=== PATIENT | male | born 1965 | race Caucasian/White ===

== ENCOUNTER 2022-01-16 13:40 | Day surgery (SDC) | payer BC, SELFPAY ==
[2022-01-16] VITALS (7 sets, daily range): BP systolic 118–127; BP diastolic 77–85; PULSE 48–69; RESP 16; TEMP 36.3–36.8; O2SAT 97–98; BMI 35.6
[2022-01-16] MEDS: Lactated Ringers 1,000 ML 15 ML IV (14:15)
--- NOTE | 2022-01-16 15:00 | EGD_PTH ---
PATIENT: YARA FRAZIER II LOC: EN U#:[id number] AGE/SX: 56/M ROOM: RE01/16/[address]: Dr. Jesús Dan DO : 1965 BED: DIS: 01/16/2022 SPEC #: [id number] RECD: 01/16/22 16:27 STATUS: NAVEEN MOSSEmily #: [id number] HERB: 01/16/22 15:[address]: Jesús Dan DEPT: SURGICAL PATHOLOGY RECD BY: Laura Ward Tissues: A - Duodenum, NOS B - Gastric mucous membrane Esophagus, NOS Procedures: Special Stain Group II Surgery Specimen Level IV Alcian Blue/PAS (control) HEADER OPERATION: EGD with biopsies ([facility]) PRE-OP DIAGNOSIS: GERD TISSUE SUBMITTED: A ? Duodenum biopsy, B ? Antrum biopsy, C ? Distal esophagus biopsy MICROSCOPIC DIAGNOSIS A. Duodenum, biopsy: Fragments of duodenal mucosa, no pathologic diagnosis. B. Antrum, biopsy: Mild gastritis. See microscopic description and comment. C. Distal esophagus, biopsy: Fragments of gastric mucosa with chronic inflammation. Intestinal metaplasia (goblet cell metaplasia) not identified. See comment. SJ:nanci 01/18/2022 COMMENT B. The results of immunohistochemistry for Helicobacter pylori will be reported separately ([id number]). C. Alcian blue/PAS stain with matched control is used in the evaluation of the specimen. MICROSCOPIC DESCRIPTION Slides are reviewed. B. The specimen shows fragments of gastric mucosa with chronic inflammatory cell infiltrates in the lamina propria consisting of lymphocytes and plasma cells, consistent with mild chronic gastritis. GROSS DESCRIPTION A - Received in fixative is one container labeled with the patient's name and designated duodenum biopsy. The specimen consists of two irregular fragments of [place] soft tissue that in aggregate measure 0.5 x 0.5 x 0.1 cm. The specimen is totally submitted in one cassette. B - Received in fixative is one container labeled with the patient's name and designated antrum biopsy. The specimen consists of multiple irregular fragments of [place] soft tissue that in aggregate measure 1.2 x 0.5 x 0.1 cm. The specimen is totally submitted in one cassette. C - Received in fixative is one container labeled with the patient's name and designated distal esophagus biopsy. The specimen consists of two irregular fragments of [place] soft tissue that in aggregate measure 0.6 x 0.3 x 0.1 cm. The specimen is totally submitted in one cassette. / SJ:rg 01/17/2022 TC:3 CPT: 59583 x3, 36671
--- NOTE | 2022-01-16 15:00 | IMM_PTH ---
PATIENT: YARA FRAZIER II LOC: EN U#:[id number] AGE/SX: 56/M ROOM: RE01/16/[address]: Dr. Jesús Dan DO : 1965 BED: DIS: 01/16/2022 SPEC #: [id number] RECD: 01/17/22 10:09 STATUS: NAVEEN REEmily #: [id number] HERB: 01/16/22 15:[address]: Jesús Dan DEPT: IMMUNOHISTOCHEMISTRY RECD BY: Catrina Crabtree Tissues: B - Stomach, NOS Procedures: H Pylori (initial) PHYSICIAN & INSTITUTION [place] [id number] SPECIMEN INFORMATION: Tissue Source: B ? Antrum biopsy Clinical Info: GERD Specimen Number: [id number] CPT code: 92414 METHODOLOGY: Deparaffinized sections of prefer/formalin-fixed tissue or PAP/DQ stained slides are incubated with monoclonal/polyclonal antibodies/oligonucleotide probes. Localization is made via biotin free immunoperoxidase method. Appropriate controls are performed and reacted as expected. Results on target cell population are indicated in the following table: RESULTS: ANTIBODY / CLONE RESULT Block B H Pylori (polyclonal) negative These tests were developed and their performance characteristics determined by [facility]. They may not have been cleared or approved by the U.[place]. Food and Drug Administration. The FDA has determined that such clearance or approval is not necessary. The above immunohistochemical/dualISH markers are ordered and reviewed by the Pathologist. INTERPRETATION: B. Antrum, biopsy: Negative for Helicobacter pylori organisms. MOHIT:nanci 01/18/2022
--- NOTE | 2022-01-16 15:15 | HP.PCM_ITS ---
History and Physical Date of Admission: 01/16/22 YARA FRAZIER, is a 56 M who presents to the office today for Initial consult. Yara established with this clinic 01.04.22 with referral from PCP. He has difficulty with reflux and upset stomach without nausea/emesis since June 2021 with progression of severity and frequency; currently occurring 3-4 days a week. Pepto-bismol ineffective, Mylanta somewhat more helpful. PCP prescribed sucralfate QID and protonix 40mg QD with minimal improvement of severity. Unable to identify triggers. BM are not an issue ? movement 1-2 times a day with complete evacuation. Screening colonoscopy 12.29.[address] [facility] ? reports three polyps. This was third screening colonoscopy. ROS Const Constitutional: No anorexia, fatigue, fever(s), weight change or sleep problems Eyes Eyes: No change in vision ENT ENT: No abnormal hearing, difficulty swallowing, mouth lesions, tongue swelling or throat swelling Resp Respiratory: No cough or shortness of breath Cardio Cardiology: No chest pain at rest, chest pain with exertion, shortness of breath or dyspnea on exertion Gastro GI: No difficulty swallowing Genitourinary Male: No difficulty urinating or burning urination Musc Musculoskeletal: No joint pain, joint swelling, muscle weakness or decreased muscle mass Skin Skin: No hair loss in leg, yellowing of the eye, itchy eyes, rash, skin ulcer or skin swelling Neuro Neurology: No abnormal hearing, abnormal movements, confusion, unsteady gait/balance or memory loss Psych Psychiatric: No anxiety, No confusion and No memory loss Endo Endocrine: No fatigue or weight change Aller/Imm Allergy/Immunologic: No itchy eyes, throat swelling or tongue swelling Bharathi/Lymp Hematologic/Lymphatic: No easy bleeding, easy bruising or enlarged lymph nodes Exam Const General: cooperative and comfortable Nutritional Appearance: average body habitus and well nourished [facility] Head: normal to inspection Ears: hearing grossly normal bilaterally Nose: external nose normal Face and sinus: normal facial exam Mouth: oral mucosae normal Throat: posterior oropharynx normal Eyes General: appearance normal, both eyes and all related structures Neck Neck: normal visual inspection Chest Chest palpation & inspection: normal inspection of the chest and normal palpation of entire chest wall Resp Effort & Inspection: normal respiratory effort Auscultation: Bilateral: Clear to Auscultation Cardio Palpation: normal PMI Rate: regular rate Rhythm: regular rhythm GI Inspection: normal to inspection Auscultation: normal bowel sounds Percussion: normal to percussion Palpation: no hepatosplenomegaly Skin General: no rashes or lesions noted Neuro General: patient alert Extrem General: normal to inspection Psych Affect: normal affect Quality Reporting Tobacco Screening ([facility] 138) Smoking Status: Current every day smoker Assessment and Plan Assessment and Plan (1) GERD (gastroesophageal reflux disease): ?Status:?Acute ?Plan: We will have an upper endoscopy to evaluate his upper GI tract. I think alot of his symptoms are secondary to his diet. He will be a strict complex carbohydrate and protein diet for three weeks.After 3 weeks he will be able to incorporate on thing from the list of food that will be off limits. We will also perform an endoscopy to evaluation his upper GI tract. I have re-examined the patient. There are no clinical changes since date of exam.
--- NOTE | 2022-01-16 15:35 | OP.CCLET_ITS ---
01/16/2022 [place] Re : Upper GI endoscopy procedure for Brad Park This procedure was performed on Sunday, January 16, 2022. My impressions and recommendations are as follows: Impressions : - Z-line irregular, 40 cm from the incisors. Biopsied. - Non-bleeding erosive gastropathy. Biopsied. - Gastritis. Biopsied. - Normal second portion of the duodenum. Recommendations : - Discharge patient to home. - Resume previous diet. - Continue present medications. - Await pathology results. - Repeat upper endoscopy in 1 year for surveillance based on pathology results. My findings are described in the full procedure note, which is enclosed. If I can be of further assistance, please feel free to contact me at . Sincerely, Jesús Dan, 01/16/2022 3:34:56 PM This report has been signed electronically.
--- NOTE | 2022-01-16 15:35 | OP.EGD_ITS ---
Patient Name: Brad Christian Procedure Date: 01/16/2022 3:04 PM Date of : 1965 Age: 56 Procedure: Upper GI endoscopy Indications: Epigastric abdominal pain, Functional Dyspepsia Providers: Jesús Dan DO Medicines: Monitored Anesthesia Care Patient Profile: This is a 56 year old male. Refer to note in patient chart for documentation of history and physical. Patient has symptoms of chronic abdominal cramping, chronic abdominal distention and chronic epigastric abdominal pain. Complications: No immediate complications. Procedure: Pre-Anesthesia Assessment: - Prior to the procedure, a History and Physical was performed, and patient medications and allergies were reviewed. The risks and benefits of the procedure and the sedation options and risks were discussed with the patient. All questions were answered and informed consent was obtained. Patient identification and proposed procedure were verified by the physician in the pre-procedure area. Mental Status Examination: alert and oriented. Airway Examination: normal oropharyngeal airway and neck mobility. Respiratory Examination: clear to auscultation. CV Examination: normal. Prophylactic Antibiotics: The patient does not require prophylactic antibiotics. Prior Anticoagulants: The patient has taken no previous anticoagulant or antiplatelet agents. ASA Grade Assessment: II - A patient with mild systemic disease. After reviewing the risks and benefits, the patient was deemed in satisfactory condition to undergo the procedure. The anesthesia plan was to use monitored anesthesia care (MAC). Immediately prior to administration of medications, the patient was re-assessed for adequacy to receive sedatives. The heart rate, respiratory rate, oxygen saturations, blood pressure, adequacy of pulmonary ventilation, and response to care were monitored throughout the procedure. The physical status of the patient was re-assessed after the procedure. After obtaining informed consent, the endoscope was passed under direct vision. Throughout the procedure, the patient's blood pressure, pulse, and oxygen saturations were monitored continuously. The Endoscope was introduced through the mouth, and advanced to the second part of duodenum. The upper GI endoscopy was accomplished without difficulty. The patient tolerated the procedure well. Scope In: 3:21:01 PM Scope Out: 3:28:54 PM Total Procedure Duration Time 0 hours 7 minutes 53 seconds Findings: The Z-line was irregular and was found 40 cm from the incisors. Biopsies were taken with a cold forceps for histology. Multiple localized, 5 mm non-bleeding erosions were found in the gastric body. There were no stigmata of recent bleeding. Biopsies were taken with a cold forceps for histology. Verification of patient identification for the specimen was done. Estimated blood loss was minimal. Patchy mild inflammation characterized by congestion (edema) and erythema was found in the gastric body. Biopsies were taken with a cold forceps for histology. Verification of patient identification for the specimen was done. Estimated blood loss was minimal. The second portion of the duodenum was normal. Multiple areas of ectopic gastric mucosa were found in the upper third of the esophagus, 21 cm from the incisors. Impression: - Z-line irregular, 40 cm from the incisors. Biopsied. - Non-bleeding erosive gastropathy. Biopsied. - Gastritis. Biopsied. - Normal second portion of the duodenum. Recommendation: - Discharge patient to home. - Resume previous diet. - Continue present medications. - Await pathology results. - Repeat upper endoscopy in 1 year for surveillance based on pathology results. Procedure Code(s): --- Professional --- 88258, Esophagogastroduodenoscopy, flexible, transoral; with biopsy, single or multiple CPT copyright 2017 [employer]. All rights reserved. The codes documented in this report are preliminary and upon surgical coder review may be revised to meet current compliance requirements. Jesús Dan DO 01/16/2022 3:34:56 PM This report has been signed electronically. Number of Addenda: 0 Note Initiated On: 01/16/2022 3:04 PM
== END 2022-01-16 16:14 | disposition home or self-care (01) ==
LOC: EN 13:41 → AC 13:44
PROVIDERS: Referring Provider Internal Medicine Gastroenterology; Visit Provider Internal Medicine Gastroenterology
PROC: 0DJ08ZZ Inspection of Upper Intestinal Tract, Via Natural or Artificial Opening Endoscopic (ICD-10-PCS; CPT 43235; principal; 2022-01-16 14:55)
DX: K31.89 Other diseases of stomach and duodenum (principal); K29.50 Unspecified chronic gastritis without bleeding; F17.200 Nicotine dependence, unspecified, uncomplicated; E78.00 Pure hypercholesterolemia, unspecified; K20.90 Esophagitis, unspecified without bleeding; Z79.82 Long term (current) use of aspirin; Z79.899 Other long term (current) drug therapy
CPT/HCPCS: 43239; 88305; 88313; 88342; J7120; J2405

== ENCOUNTER → 2022-05-28 | Outpatient (CLI) | payer BC, SELFPAY ==
[2022-05-28 10:37] LABS: Absolute Lymphocyte Count 2.08 X10^3/uL (0.83-4.51); Absolute Neutrophil Count 5.4 X10^3/uL (2.0-7.7); Basophil# 0.04 X10^3/uL; Basophil% 0.5 % (0-1); Eosinophil# 0.22 X10^3/uL; Eosinophils% 2.6 % (0-5); Hematocrit 42.3 % (40-54); Hemoglobin 13.8 g/dL (13.0-16.5); Lymphocyte # 2.08 X10^3/ul (0.83-4.51); Lymphocyte % 24.3 % (19-41); Mean Corp Hgb Conc 32.6 g/dL (32-36); Mean Corpuscular Hgb 30.7 pg (27.0-32.0); Mean Platelet Vol. 10.5 fl (6.2-12.0); Monocyte# 0.72 X10^3/uL; Monocyte% 8.4 % (0-10); NRBC Flagged by Analyzer 0 % (0-5); Neutrophil # 5.39 X10^3/uL (2.7-7.7); Platelet Count 200 K/mm3 (150-450); RBC Distribution Width CV 12.3 % (11.6-14.6); RBC Distribution Width SD 42.6 fl (35.1-43.9); White Blood Count 8.6 K/mm3 (4.4-11.0)
[2022-05-28 10:44] LABS: Erythrocyte Sedimentation Rate 3 mm/hr (0-20)
[2022-05-28 11:15] LABS: ALB/GLOB Ratio 1.1 RATIO (0.9-2.4); AST(SGOT) 24 U/L (15-37); Alanine Aminotransfer ALT/SGPT 25 U/L (16-61); Albumin, Serum 3.7 g/dL (3.2-5.0); Alkaline Phosphatase 75 U/L (45-117); Anion Gap 6 (5-15); BUN 13 mg/dL (7-18); BUN/Creat Ratio 11.6 RATIO (10-20); CRP < 2.90 mg/L (0.0-3.0); Calcium,Total 8.7 mg/dL (8.5-10.1); Chloride 105 mmol/L (98-107); Creatinine, Serum 1.12 mg/dL (0.70-1.30); EST Glomerular Filtration Rate 72 mL/min (>60); Est Glom Filt Rate - Afr Amer 87 mL/min (>60); GGTP 36 U/L (15-85); Globulin 3.3 g/dL (2.2-4.2); Glucose 105 mg/dL (74-106); Potassium 4.3 mmol/L (3.5-5.1); Sodium Level 139 mmol/L (136-145)
== END | disposition home or self-care (01) ==
LOC: LAB 09:16
PROVIDERS: PCP Nurse Practitioner Family; Referring Provider Nurse Practitioner Adult Health; Visit Provider Nurse Practitioner Adult Health
DX: R10.13 Epigastric pain (principal)
CPT/HCPCS: 36415; 80053; 82977; 85025; 85652; 86140

== ENCOUNTER → 2022-06-09 | Outpatient (CLI) | payer BC, SELFPAY ==
--- NOTE | 2022-06-09 08:19 | US_ITS ---
EXAM: US Abdomen RUQ (limited) INDICATION: Male, 56 years old. Epigastric pain TECHNIQUE: Wayne-scale and color Doppler imaging was performed of the abdomen COMPARISON: No relevant priors. FINDINGS: LIVER: Mid clavicular length measures 16.1 cm. Normal parenchymal echotexture. Moderate diffuse homogeneous hyperechogenicity. No focal lesion. Normal biliary ducts. Patent main portal vein with appropriate directional flow. . GALLBLADDER AND BILIARY TREE: Mild gallbladder distention. Gallbladder wall measures 2.2 mm. No intraluminal stone. No pericholecystic fluid. Negative sonographic Matute sign. Common bile duct measures 4.0 mm in diameter. No intraductal stone. PANCREAS: Obscured by overlying bowel gas.. KIDNEYS: Right kidney measures 11.4 x 5.3 x 5.6 cm. Renal cortex measures 2.2 cm. Normal parenchymal echogenicity. No focal lesion. No visualized nephrolithiasis. No hydronephrosis. US/Abdomen Limited IMPRESSION: Fatty infiltration of the liver. Electronically Signed: Don Levy MD at 9:10 EST ,
[2022-06-15 18:58] LABS: Pancreatic Elastase, Fecal > 500 (>200)
== END | disposition home or self-care (01) ==
PROVIDERS: PCP Nurse Practitioner Family; Referring Provider Nurse Practitioner Adult Health; Visit Provider Nurse Practitioner Adult Health
DX: R10.13 Epigastric pain (principal)
CPT/HCPCS: 76705; 82653